=== PATIENT | male | born 1960 | race American Indian/Alaskan Native ===

== ENCOUNTER 2018-07-30 17:20 | Emergency (ER) | payer BC ==
[~2018-07-30 17:20] MED LIST: AMIDATE IV ONE; XYLOCAINE CARDIAC IV ONE; ZEMURON IV ONE
[2018-07-30] MEDS ORDERED: ATIVAN IV PRN (17:30)
[2018-07-30] MEDS ORDERED: VASELINE LIP THERAPY TP PRN (17:30)
[2018-07-30] MEDS ORDERED: ARTIFICIAL TEARS OPHTH OINT OU PRN (17:30)
[2018-07-30 17:39] LABS: Hematocrit 48.1 % (35.5-45.6); Hemoglobin 15.7 gm/dl (11.8-15.2); Mean Corpuscular HGB Conc 33 % (32-34); Mean Corpuscular Hemoglobin 33 pg (28-32); Mean Corpuscular Volume 100 fl (84-94); Platelet Count 295 K/mm3 (140-440); Red Blood Count 4.82 M/mm3 (3.65-5.03); Red Cell Distribution Width 14.9 % (13.2-15.2)
[2018-07-30 17:50] LABS: INR 1.03 (0.87-1.13); Partial Thromboplastin Time 22.3 Sec. (24.2-36.6)
[2018-07-30 17:55] LABS: BUN/Creatinine Ratio 12; Blood Urea Nitrogen 12 mg/dL (9-20); Calcium 8.6 mg/dL (8.4-10.2); Hemolysis Index 5
[2018-07-30] MEDS ORDERED: NACL 0.9% 500 ML IV SCH (18:00)
[2018-07-30] MEDS ORDERED: fentaNYL DRIP Premix 2,000 MCG/100 ML BAG IV SCH (18:00)
--- NOTE | 2018-07-30 18:06 | XRay Report ---
FINAL REPORT EXAM: XR CHEST 1V AP HISTORY: neuro deficit TECHNIQUE: Frontal portable view of the chest Comparison: Chest x-ray also performed today that appears to have been obtained 1 minutes later. FINDINGS: The tip of the endotracheal tube is above the level of the clavicles. There is bilateral hypoinflation with crowding of the bronchovascular structures. Evaluation of the cardiomediastinal silhouette is limited by the hypoinflation. The stomach is markedly distended and air-filled. IMPRESSION: 1. The tip of the endotracheal tube is above the level of the clavicles on this study. On what appears to be a subsequent study obtained 1 minutes later the tip of the endotracheal tube is demonstrated in the right mainstem bronchus.
--- NOTE | 2018-07-30 18:17 | Cat Scan Report ---
FINAL REPORT EXAM: CT HEAD/BRAIN WO CON HISTORY: neuro deficits < 6hrs or sx present upon awakening found unconscious. Clinical findings suspicious for brainstem infarct or encephalopathy. Possible overdose. TECHNIQUE: 2.5 millimeter axial images from the skullbase to the vertex. Comparison: None FINDINGS: There is no evidence of an acute intracranial process, intracranial hemorrhage or mass effect. The ventricles are normal size. The visualized portions of the orbits the, paranasal and mastoid sinuses are notable for the appearance of bilateral proptosis and the appearance of deformity of the left orbital floor which may represent sequela of previous fracture. There is no air-fluid level or mucosal thickening in the left maxillary sinus to suggest the presence of an acute orbital floor fracture. There is moderate bilateral ethmoid sinus mucosal thickening. IMPRESSION: 1. No evidence of an acute intracranial process, intracranial hemorrhage or mass effect. 2. Appearance of bilateral proptosis and possible deformity of the floor of the left orbit suggestive of sequela of previous fracture. 3. Moderate bilateral ethmoid sinus mucosal thickening. This study was discussed with Dr. Pappas at 6:15 p.m. July 30, 2018.
--- NOTE | 2018-07-30 18:18 | XRay Report ---
FINAL REPORT EXAM: XR CHEST 1V AP HISTORY: ETT placement TECHNIQUE: Frontal portable view of the chest Comparison: Chest x-ray that appears to have been obtained 1 minutes earlier FINDINGS: The tip of the endotracheal tube is in the proximal right mainstem bronchus. There continues to be bilateral hypoinflation with crowding of the bronchovascular structures. The cardiac silhouette appears to be normal size. The there is widening of the mediastinum that may be secondary to hypoinflation and portable technique. The bony structures are unremarkable. The stomach is markedly distended and air-filled. IMPRESSION: 1. Tip of the endotracheal tube in the right mainstem bronchus. This was discussed with Dr. Pappas the the at 6:15 p.m. July 30, 2018. He reports that the tube has been pulled back. 2. Hypoinflation. 3. Widening of the mediastinum that may be secondary to hypoinflation and portable technique.
--- NOTE | 2018-07-30 18:20 | Emergency Department Report ---
ED General Adult HPI - General Chief complaint: Neuro Symptoms/Deficit Stated complaint: STROKE Time Seen by Provider: 07/30/18 17:29 Source: EMS (verbal report received from EMS.ems notes not available at time of chart dictation), RN notes reviewed Mode of arrival: Stretcher Limitations: Altered Mental Status, Physical Limitation - History of Present Illness Initial comments: This is a 58-year-old gentleman who is not known to this provider previously. He is brought to the hospital by EMS intubated and unresponsive. EMS reports that they arrived at the patient's house approximately 40 minutes prior to arrival to the emergency room. Patient arrives at the emergency room with EMS at 5:22 PM. Therefore, EMS likely arrived at/around 4:42 PM. The patient was found unresponsive in his car, for uncertain duration of time, and uncertain mechanism. EMS really reported that the patient smelled of alcohol. EMS verbally reported that the patient was unresponsive with a normal fingerstick, and they therefore intubated the patient with an 8-0 Persian tube. They report that after intubation, he had good color change, and appropriate saturation. They also reported a normal dextrose. Upon arrival to the emergency room, the patient is intubated, obtunded, receiving bagged ventilation through aforementioned endotracheal tube. He is saturating at 100%. He has pinpoint pupils, and a GCS of 3. There is no antecedent trauma as per EMS. A code stroke is called overhead. Prior to going to CAT scan, an x-ray is obtained to ascertain tube placement, and endotracheal tube is noted to be placed inappropriately. I performed direct video laryngoscopy, and noted the tube to be in the esophagus, and therefore remove the tube. Patient was placed on nasal cannula at 15 L/m, had towel rolls inserted underneath the shoulder blades, and receives bag-valve- mask ventilation. He was given 100 mg of lidocaine IV, but was very relaxed and did not require an induction agent or paralytic agent. Soledad catheter introduction through the trachea was attempted and was unsuccessful. A rigid stylet was then placed through the 7.5 endotracheal tube , and the patient was intubated on a second attempt with difficulty. His post intubation x-ray demonstrated a right mainstem intubation, and endotracheal tube was retracted 4 cm. At this point in time, family has not arrived, a noncontrast CT scan of the brain is negative, and I'm awaiting callback from consulting neurology. An emergent angiogram of the head and neck is pending at this time. -: unknown Radiation: other Quality: other Consistency: other Improves with: other Worsens with: other Associated Symptoms: other Treatments Prior to Arrival: other - Related Data Allergies Allergy/AdvReac Type Severity Reaction Status Date / Time Unable to Assess Allergy Unverified 07/30/18 17:27 ED Review of Systems ROS: Stated complaint: STROKE Other details as noted in HPI Comment: Unobtainable due to pts medical conditions ED Past Medical Hx - Past Medical History Previous Medical History?: No Additional medical history: unknown - Social History Smoking Status: Unknown if ever smoked Substance Use Type: None ED Physical Exam - General Limitations: Altered Mental Status, Physical Limitation General appearance: obtunded - Head Head exam: Present: atraumatic, normocephalic - Eye Eye exam: Absent: normal appearance (both pupils are pinpoint and minimally reactive to light) - ENT ENT exam: Present: other (endotracheal tube is noted in the oropharynx. During intubation, copious blood and secretions are noted in the oropharynx) - Neck Neck exam: Present: normal inspection. Absent: tenderness, meningismus - Respiratory Respiratory exam: Present: decreased breath sounds. Absent: wheezes, rales, rhonchi, stridor - Cardiovascular Cardiovascular Exam: Present: regular rate, normal rhythm, normal heart sounds. Absent: bradycardia, tachycardia, irregular rhythm - GI/Abdominal GI/Abdominal exam: Present: soft, distended. Absent: tenderness, guarding, rebound, rigid, pulsatile mass - Rectal Rectal exam: Present: normal inspection - exam: Present: normal inspection External exam: Present: normal external exam - Extremities Exam Extremities exam: Present: normal inspection, normal capillary refill, other (2 + pulses noted in the bilateral upper, lower extremities. Compartments soft. No long bony tenderness. The pelvis is stable.). Absent: tenderness, pedal edema, joint swelling, calf tenderness - Back Exam Back exam: Present: normal inspection. Absent: tenderness, CVA tenderness (R), paraspinal tenderness - Neurological Exam Neurological exam: Present: altered, other (patient is intubated initially and cannot participate with the neurologic examination) - Psychiatric Psychiatric exam: Present: other (intubated, initial GCS is) - Skin Skin exam: Present: warm ED Course Vital Signs 07/30/18 07/30/18 07/30/18 17:22 17:26 17:28 Temperature 98.5 F Pulse Rate 100 H 97 H 99 H Respiratory 12 Rate Blood Pressure 158/91 Blood Pressure 158/91 [Left] O2 Sat by Pulse 96 Oximetry 07/30/18 07/30/18 07/30/18 17:30 17:38 17:40 Temperature Pulse Rate 94 H 99 H Respiratory 9 L 11 L 10 L Rate Blood Pressure 158/91 130/96 130/96 Blood Pressure [Left] O2 Sat by Pulse 97 96 Oximetry 07/30/18 07/30/18 07/30/18 17:45 17:46 17:50 Temperature Pulse Rate 89 113 H 107 H Respiratory 19 18 Rate Blood Pressure 142/93 130/96 142/93 Blood Pressure [Left] O2 Sat by Pulse 98 85 96 Oximetry 07/30/18 07/30/18 07/30/18 18:06 18:10 18:16 Temperature Pulse Rate 88 89 88 Respiratory 15 20 20 Rate Blood Pressure 142/93 142/93 142/93 Blood Pressure [Left] O2 Sat by Pulse 98 98 96 Oximetry 07/30/18 07/30/18 07/30/18 18:20 18:26 18:30 Temperature Pulse Rate 88 87 100 H Respiratory 20 20 19 Rate Blood Pressure 93/58 133/84 Blood Pressure [Left] O2 Sat by Pulse 97 97 94 Oximetry 07/30/18 07/30/18 07/30/18 18:36 18:40 18:46 Temperature Pulse Rate 90 87 87 Respiratory 20 20 20 Rate Blood Pressure 118/79 118/79 118/79 Blood Pressure [Left] O2 Sat by Pulse 97 97 98 Oximetry 07/30/18 07/30/18 07/30/18 18:50 18:56 19:00 Temperature Pulse Rate 88 92 H 97 H Respiratory 20 20 20 Rate Blood Pressure 99/69 90/61 90/61 Blood Pressure [Left] O2 Sat by Pulse 98 99 97 Oximetry 07/30/18 07/30/18 07/30/18 19:06 19:10 19:15 Temperature Pulse Rate 83 82 81 Respiratory 20 20 19 Rate Blood Pressure 106/75 106/75 102/70 Blood Pressure [Left] O2 Sat by Pulse 98 97 100 Oximetry 07/30/18 07/30/18 07/30/18 19:20 19:26 19:28 Temperature Pulse Rate 82 100 H 77 Respiratory 17 22 Rate Blood Pressure 89/53 114/77 Blood Pressure [Left] O2 Sat by Pulse 100 98 98 Oximetry 07/30/18 07/30/18 07/30/18 19:30 19:36 20:04 Temperature Pulse Rate 77 70 76 Respiratory 24 24 26 H Rate Blood Pressure 114/77 114/77 114/77 Blood Pressure [Left] O2 Sat by Pulse 98 100 Oximetry 07/30/18 07/30/18 07/30/18 20:05 20:10 20:15 Temperature Pulse Rate 72 64 62 Respiratory 24 24 24 Rate Blood Pressure 121/85 121/85 117/85 Blood Pressure [Left] O2 Sat by Pulse 100 100 Oximetry 07/30/18 07/30/18 07/30/18 20:20 20:26 20:30 Temperature Pulse Rate 65 65 68 Respiratory 24 24 24 Rate Blood Pressure 117/85 117/85 120/89 Blood Pressure [Left] O2 Sat by Pulse 100 100 99 Oximetry 07/30/18 07/30/18 07/30/18 20:36 20:40 20:45 Temperature Pulse Rate 61 61 60 Respiratory 24 24 24 Rate Blood Pressure 120/89 120/89 128/86 Blood Pressure [Left] O2 Sat by Pulse 100 100 100 Oximetry 07/30/18 07/30/18 20:50 20:56 Temperature Pulse Rate 61 66 Respiratory 24 24 Rate Blood Pressure 128/86 128/86 Blood Pressure [Left] O2 Sat by Pulse 100 100 Oximetry - Reevaluation(s) Reevaluation #1: 07/30/18 18:34 Differential diagnosis, including but not limited to: Toxic encephalopathy, metabolic encephalopathy, TIA, postictal state, stroke Assessment and plan: 58-year-old gentleman who is initially brought in with a GCS of 3 intubated, with altered mental status. There is a delay in acquisition of CT scan because the patient required reintubation and was a difficult intubation. A noncontrast CT scan of the brain was negative. The angiogram of the head and neck is pending, but in this interim time period, the patient became more awake , and was noted to be moving 4 extremities vigorously. He followed some but not all commands. We do not know when his exact last known well time is. In addition, given that he went from being unresponsive to vigorously responsive, I think it is unlikely that the patient had a significant ischemic event. I'm more favor a resolving toxic encephalopathy at this time. Postictal state also possibility. I have discussed the case with the consulting stroke neurologist, Dr. Jeff Rainey , and we both agree that based on the current set of information, patient not appropriate for TPA/thrombolysis. We both agreed to obtain emergent angiogram of the head and neck to exclude large vessel disease. In the meantime, the patient be ventilated lung protective strategy. He will receive appropriate supportive care, oral gastric tube, and appropriate sedation. Reevaluation #2: 07/30/18 21:21 ct angio head neck negative for large vessel occlusion family at bedside. MRI machine is broken for the next 2 or 3 days in this hospital does not have MR capability for at least the next 48 hours. In addition, this hospital does not have neuro critical care capability. therefore, patient has an emergent condition, and requires transfer for higher level of care Dr Morin at [facility] accepts as a transfer - EJ/Peripheral Line Neck L Time Out Performed: Yes Indications: multiple IV sites needed Skin Cleansed in Sterile Fashion: Yes Size: 20 Dressing Placed: Tegaderm Patient Tolerated Procedure: well - Intubation Time Out Performed: No (emergency) Sedative: none Laryngoscope: fiberoptic video scope Size: 4 Assist Device Used: Bougie ET Tube Size: 7.5 Tube Secured Depth (cm): 27 (27 cm, them retracted 4 cm) Tube Secured Location: teeth Tube Placement Confirmation: visualized tube passing t, equal breath sounds bilat, no breath sounds over epi, confirmation by capnometr Intubation Complications: difficult intubation Additional Comments: After initial x-ray shows an appropriate placement of endotracheal tube, the endotracheal tube is removed. Towel rolls in place underneath the patient's shoulder to align ear to the sternal notch. He receives a nasal cannula at 15 L /m, and receives [id number] ventilation. He also received copious suctioning of the oropharynx which revealed bloody aspirate. Radial laryngoscopy is performed, and the patient's larynx and vocal cords are identified, and a bougie catheter is placed, but it did not advance. Patient receives additional [id number] ventilation, and an endotracheal tube with a rigid stylette is then introduced into the hypopharynx, and is noted to pass the cords although with difficulty. The patient is intubated, and a post intubation x-ray showed right mainstem intubation, and the endotracheal tube was retracted 4 cm. ED Medical Decision Making - Lab Data Result diagrams: 07/30/18 17:26 07/30/18 17:26 Critical Care Time: Yes Critical care time in (mins) excluding proc time.: 60 Critical care attestation.: If time is entered above; I have spent that time in minutes in the direct care of this critically ill patient, excluding procedure time. ED Disposition Clinical Impression: Encephalopathy Respiratory failure Qualifiers: Chronicity: unspecified Respiratory failure complication: unspecified whether with hypoxia or hypercapnia Qualified Code(s): J96.90 - Respiratory failure, unspecified, unspecified whether with hypoxia or hypercapnia Disposition: OP ADMIT IP TO THIS HOSP Is pt being admited?: Yes Condition: Critical Referrals: PRIMARY CARE, [Primary Care Provider] - 3-5 Days
[2018-07-30 18:23] LABS: Band Neutrophils # (Manual) 0.1 K/mm3; RBC Morphology Normal; Total Cells Counted 100
[2018-07-30 18:24] LABS: Platelet Estimate Consistent w Auto
[2018-07-30] MEDS ORDERED: SUBLIMAZE ONE ×2 (18:26→18:28)
[2018-07-30] MEDS ORDERED: DIPRIVAN 10 MG/ML 1,000 MG/100 ML BOTTLE IV ONE (18:37)
[2018-07-30] MEDS ORDERED: SUBLIMAZE IV ONE (19:07)
[2018-07-30] MEDS ORDERED: DIPRIVAN 10 MG/ML 1,000 MG/100 ML BOTTLE IV SCH (20:00)
[2018-07-30 20:45] LABS: Bilirubin,Urine NEG (Negative); Blood,Urine SM (Negative); Color,Urine Yellow (Yellow); Hyaline Casts,Urine 6 /LPF; Urobilinogen,Urine < 2.0 mg/dL (<2.0)
--- NOTE | 2018-07-30 20:47 | Cat Scan Report ---
FINAL REPORT EXAM: CT ANGIO NECK HISTORY: ams TECHNIQUE: Following IV administration of 150 cc of Omnipaque 350 axial helical imaging was performed through the neck with maximum intensity projection images obtained. Comparison: None FINDINGS: There is pulmonary consolidation with the appearance of atelectasis in the dependent portions of the visualized portions of the lungs bilaterally. The visualized portion of the thoracic aorta and pulmonary arteries are unremarkable. There is normal enhancement of the cervical arteries without evidence of occlusion, stenosis, dissection or aneurysm. The bony structures are unremarkable in appearance. There are mildly prominent bilateral cervical lymph nodes. None are pathologic by CT size criteria. The tip of the endotracheal tube is below the level of the clavicles and above the level of the nadia. IMPRESSION: 1. No evidence of occlusion, stenosis, dissection or aneurysm of the cervical arteries. NASCET the criteria are utilized.
[2018-07-30 20:50] LABS: Amphetamine Screen,Urine PRESUMPTIVE NEGATIVE; Benzodiazepines Screen,Urine PRESUMPTIVE NEGATIVE; Methadone Screen,Urine PRESUMPTIVE NEGATIVE; Opiate Screen,Urine PRESUMPTIVE NEGATIVE
--- NOTE | 2018-07-30 21:00 | Cat Scan Report ---
FINAL REPORT EXAM: CT angiogram head HISTORY: Stroke TECHNIQUE: Following IV administration of 150 cc of Omnipaque 350 axial helical imaging was performed through the brain with maximum intensity projection images obtained. Comparison: Head CT also performed today FINDINGS: There is normal enhancement of the intracranial arteries without evidence of occlusion, hemodynamically significant stenosis or aneurysm. There is deformity of the floor of the left orbit with herniation of orbital fat in the inferior rectus muscle through the defect. This is consistent with sequela of a previous fracture. There is no abnormality within the adjacent maxillary sinus to suggest that this is acute. The orbital contents are otherwise unremarkable. IMPRESSION: 1. No evidence of occlusion, hemodynamically significant stenosis or aneurysm of the major intracranial arteries. 2. Deformity of the floor of the left orbit with herniation of orbital fat and the inferior rectus muscle through the defect. This is consistent with sequela of previous fracture.
[2018-07-30 21:29] LABS: Cannabinoid Screen,Urine PRESUMPTIVE POSITIVE; Cocaine Screen,Urine PRESUMPTIVE POSITIVE
[2018-07-30] MEDS ORDERED: ASPIRIN PR ONE (22:19)
[2018-07-30 23:35] VITALS: BP 117/83
== END 2018-07-31 01:20 | disposition admitted as inpatient to this hospital (09) ==
LOC: ED 17:20
DX: G93.40 Encephalopathy, unspecified (principal); J96.90 Respiratory failure, unspecified, unspecified whether with hypoxia or hypercapnia
CPT/HCPCS: 31500; 36415; 36569; 70450; 70496; 70498; 71045; 80048; 80307; 81001; 82803; 84484; 85007; 85025; 85610; 85670; 85730; 87205; 93005; 93010; 96365; 96366; 96375; 99291; G0480; J2001; J2060; J2704; J3010; Q9967; 80320; 94002